=== PATIENT | male | born 1995 | race American Indian/Alaskan Native ===

== ENCOUNTER 2020-08-25 10:35 | Emergency (ER) | payer SELFPAY ==
[2020-08-25 10:58] VITALS: BP 137/95
--- NOTE | 2020-08-25 11:00 | Event Note ---
ED Screening Note Date of service: 08/25/20 Time: 10:59 ED Screening Note: 24-year-old male presents to ED with rectal bleeding with bowel movement and without x3 months. Patient states symptoms getting worse in the past week and has been bleeding consistently, pain and fall older coming out of the rectum. This initial assessment/diagnostic orders/clinical plan/treatment(s) is/are subject to change based on patients health status, clinical progression and re- assessment by fellow clinical providers in the ED. Further treatment and workup at subsequent clinical providers discretion. Patient/guardian urged not to elope from the ED as their condition may be serious if not clinically assessed and managed. Initial orders include: CBC, PT PTT Eval
[2020-08-25 11:37] LABS: Basophils % (Auto) 0.5 % (0.0-1.8); Eosinophils # (Auto) 0.1 K/mm3 (0.0-0.4); Eosinophils % (Auto) 0.9 % (0.0-4.3); Hematocrit 43.2 % (35.5-45.6); Hemoglobin 14.4 gm/dl (11.8-15.2); Lymphocytes % (Auto) 23.7 % (13.4-35.0); Mean Corpuscular HGB Conc 33 % (32-34); Mean Corpuscular Volume 88 fl (84-94); Monocytes # (Auto) 0.9 K/mm3 (0.0-0.8); Monocytes % (Auto) 11.3 % (0.0-7.3); Platelet Count 395 K/mm3 (140-440); Red Blood Count 4.93 M/mm3 (3.65-5.03); Red Cell Distribution Width 12.8 % (13.2-15.2)
[2020-08-25 12:50] LABS: BUN/Creatinine Ratio 16; Blood Urea Nitrogen 13 mg/dL (9-20); Calcium 9.3 mg/dL (8.4-10.2); Hemolysis Index 1
--- NOTE | 2020-08-25 13:04 | Emergency Department Report ---
ED GI Bleed HPI - General Chief complaint: Rectal Pain Stated complaint: ANUL BLEEDING X 3MONTHS Time Seen by Provider: 08/25/20 12:29 Source: patient Mode of arrival: Ambulatory Limitations: No Limitations - History of Present Illness Initial comments: Chief complaint: Rectal pain and bleeding HPI: This is a 24-year-old male with history of HIV who presents with rectal pain and bleeding for 3 months. His PCP prescribed steroid cream. Steroid cream did not provide any relief. Patient also was treated for STD. Patient stated that he had smelly discharge at one time in the region. Patient has had symptoms for 3 months. Patient has had significant pain and tenderness. He engages in receptive unprotected intercourse with his partner. He and partner are not monogamous. Pain is moderately severe. Pain is worse with defecation. MD complaint: blood on toilet paper -: Gradual, month(s) (3 months) Radiation: none Quality: dull Consistency: intermittent Worsens with: bowel movement Context: other (Anal receptive intercourse, treated with steroids, treated with antibiotics) - Related Data Previous Rx's Medication Instructions Recorded Last Taken Type Ibuprofen [Motrin] 800 mg PO Q8HR PRN #30 tablet 02/15/16 Unknown Rx Neomycn/Bacitrc/Polymyx/Pramox 14 gm TP BID #1 oint...g. 02/15/16 Unknown Rx [Triple Antibioti-Pain Rlf Oint] Docusate Sodium [Colace] 100 mg PO BID 30 Days #60 capsule 08/25/20 Unknown Rx Imiquimod [Zyclara 3.75%] 1 applicatio TP QHS 49 Days #49 08/25/20 Unknown Rx cream.pack Allergies Allergy/AdvReac Type Severity Reaction Status Date / Time No Known Allergies Allergy Unverified 11/30/14 15:17 ED Review of Systems ROS: Stated complaint: ANUL BLEEDING X 3MONTHS Other details as noted in HPI Comment: All other systems reviewed and negative Constitutional: denies: fever, malaise Respiratory: denies: cough, shortness of breath Gastrointestinal: denies: abdominal pain, nausea, vomiting ED Past Medical Hx - Past Medical History Previous Medical History?: Yes Hx Congestive Heart Failure: No Hx Diabetes: No Hx Asthma: No Hx COPD: No Hx HIV: Yes - Social History Smoking Status: Never Smoker Substance Use Type: Alcohol - Medications Home Medications: Home Medications Medication Instructions Recorded Confirmed Last Taken Type Ibuprofen [Motrin] 800 mg PO Q8HR PRN #30 tablet 02/15/16 Unknown Rx Neomycn/Bacitrc/Polymyx/Pramox 14 gm TP BID #1 oint...g. 02/15/16 Unknown Rx [Triple Antibioti-Pain Rlf Oint] Docusate Sodium [Colace] 100 mg PO BID 30 Days #60 capsule 08/25/20 Unknown Rx Imiquimod [Zyclara 3.75%] 1 applicatio TP QHS 49 Days #49 08/25/20 Unknown Rx cream.pack ED Physical Exam - General Limitations: No Limitations General appearance: alert, in no apparent distress - Head Head exam: Present: atraumatic, normocephalic - Eye Eye exam: Present: normal appearance - ENT ENT exam: Present: mucous membranes moist - Neck Neck exam: Present: normal inspection, full ROM - Respiratory Respiratory exam: Present: normal lung sounds bilaterally. Absent: respiratory distress, wheezes - Cardiovascular Cardiovascular Exam: Present: regular rate, normal rhythm, normal heart sounds. Absent: systolic murmur, diastolic murmur, rubs, gallop - GI/Abdominal GI/Abdominal exam: Present: soft, normal bowel sounds. Absent: distended, tenderness, guarding, rebound - Rectal Rectal exam: Present: other (3 small warts, no discharge, no bleeding) - Extremities Exam Extremities exam: Present: normal inspection - Neurological Exam Neurological exam: Present: alert, oriented X3 - Psychiatric Psychiatric exam: Present: normal affect, normal mood - Skin Skin exam: Present: warm, dry, intact, normal color. Absent: rash ED Course Vital Signs 08/25/20 10:55 Temperature 98.7 F Pulse Rate 75 Respiratory 18 Rate Blood Pressure 137/95 O2 Sat by Pulse 100 Oximetry ED Medical Decision Making - Lab Data Result diagrams: 08/25/20 11:28 08/25/20 11:28 Laboratory Results - last 24 hr 08/25/20 08/25/20 11:28 11:28 WBC 8.3 RBC 4.93 Hgb 14.4 Hct 43.2 MCV 88 MCH 29 MCHC 33 RDW 12.8 L Plt Count 395 Lymph % (Auto) 23.7 [place] % (Auto) 11.3 H Eos % (Auto) 0.9 Baso % (Auto) 0.5 Lymph # (Auto) 2.0 [place] # (Auto) 0.9 H Eos # (Auto) 0.1 Baso # (Auto) 0.0 Seg Neutrophils % 63.6 Seg Neutrophils # 5.3 Sodium 138 Potassium 4.1 Chloride 102.1 Carbon Dioxide 30 Anion Gap 10 BUN 13 Creatinine 0.8 Estimated GFR > 60 BUN/Creatinine Ratio 16 Glucose 101 H Calcium 9.3 - Medical Decision Making Rectal pain bleeding differential diagnosis include anal fissure proctitis, prescribed Colace. Referred patient to GI specialist. Also referred patient to PCP. Warts are present, HPV infection imiquimod cream prescribed Critical care attestation.: If time is entered above; I have spent that time in minutes in the direct care of this critically ill patient, excluding procedure time. ED Disposition Clinical Impression: HPV (human papilloma virus) anogenital infection, Anal fissure Disposition: TO HOME OR SELFCARE Is pt being admited?: No Does the pt Need Aspirin: No Condition: Stable Instructions: Genital Warts, Anal Fissure, Adult, [id number] Prescriptions: Imiquimod [Zyclara 3.75%] 1 applicatio TP QHS 49 Days #49 cream.pack Docusate Sodium [Colace] 100 mg PO BID 30 Days #60 capsule Referrals: PRIMARY CAREMD [Primary Care Provider] - 3-5 Days ELIAN DEL CID MD [Staff Physician] - 3-5 Days
== END 2020-08-25 13:10 | disposition home or self-care (01) ==
LOC: ED 10:35
DX: A63.0 Anogenital (venereal) warts (principal); K60.2 Anal fissure, unspecified; Z21 Asymptomatic human immunodeficiency virus [HIV] infection status; Z79.899 Other long term (current) drug therapy
CPT/HCPCS: 36415; 80048; 85025; 99283